=== PATIENT | female | born 1975 | race Caucasian/White ===

== ENCOUNTER 2018-10-28 13:11 | Emergency (ER) | payer MEDICAID ==
[~2018-10-28] VITALS: Ht 165.1 cm; Wt 63.1 kg
[2018-10-28 13:40] VITALS: BP 128/69
--- NOTE | 2018-10-28 14:03 | NUR ---
PT TO ER BED 6
--- NOTE | 2018-10-28 14:10 | NUR ---
PT BIB FAMILY C/O LOW LTQ ABD/VAG PAIN X 1 MTHS. -N/V/D, -TRAUMA. UA DONE, HCG-NEG, PT DENIES N/V/D; SKIN IS INTACT, PINK/WARM/DRY; AAOX4, PERRL, WITH EVEN AND STEADY GAIT; LUNGS CLEAR BL, BREATHING UNLABORED; HR EVEN AND REGULAR, BL PERIPHERAL PULSES PRESENT; BS ACTIVE X4, +TENDERNESS TO PALPATION. PT DENIES ANY FEVER, CP, SOB, OR COUGH AT THIS TIME; PT STATES /10 PAIN AT THIS TIME; VSS; PATIENT POSITIONED FOR COMFORT; HOB ELEVATED; BEDRAILS UP X2; BED DOWN.
[2018-10-28 15:05] LABS: APPEARANCE,URINE HAZY (CLEAR); BILIRUBIN,URINE NEGATIVE (NEGATIVE); BLOOD, URINE 1+ (NEGATIVE); COLOR,URINE YELLOW (YELLOW); LEUKOCYTE ESTERASE ,URINE 3+ (NEGATIVE); NITRITE, URINE NEGATIVE (NEGATIVE); UGLUCOSE NEGATIVE (NEGATIVE)
[2018-10-28 15:21] LABS: RBC,URINE 11-20 (MOD) /HPF (0-5); WBC,URINE >25 (MANY) /HPF (0-5)
--- NOTE | 2018-10-28 15:25 | NUR ---
FEMAL SAND ANALYST FOR US, PT TOLERATED AND POSITIONED TO COMFORT AFTER.
[2018-10-28] MEDS ORDERED: cefTRIAXone 250 MG in LIDOCAINE MPF 1% - 5 mL VIAL 0.9 ML IM ONE (17:25)
[2018-10-28] MEDS ORDERED: AZITHROMYCIN 250 MG TAB PO ONE (17:25)
[2018-10-28 18:40] VITALS: BP 117/63
--- NOTE | 2018-10-28 18:40 | NUR ---
Patient discharged with v/s stable. Written and verbal after care instructions given and explained. Patient alert, oriented and verbalized understanding of instructions. Ambulatory with steady gait. All questions addressed prior to discharge. ID band removed. Patient advised to follow up with PMD. Rx of CIPRO, MOTRIN given. Patient educated on indication of medication including possible reaction and side effects. Opportunity to ask questions provided and answered.
[2018-10-31 06:07] LABS: CHLAMYDIA TRACHOMATIS AMP DNA Negative (Negative)
== END 2018-10-28 18:40 | disposition home or self-care (01) ==
LOC: MED 13:11
DX: N72 Inflammatory disease of cervix uteri (principal); N39.0 Urinary tract infection, site not specified; Z88.0 Allergy status to penicillin
CPT/HCPCS: 36415; 76830; 81001; 81025; 87086; 87210; 96372; 99284; J0696; J2001; Q0092; 87491